=== PATIENT | female | born 1955 | race Caucasian/White ===

== ENCOUNTER → 2016-11-14 | Day surgery (SDC) | payer BC ==
[2016-11-04 11:41] VITALS: Ht 165.1 cm; Wt 65.9 kg
[~2016-11-14] VITALS: Ht 165.1 cm; Wt 65.9 kg
[~2016-11-14] MED LIST: 500ML BSS 0.3ML EPI 1:1000PF IRRIG ONE; ACETAMINOPHEN 325 MG TAB PO PRN; ALEN40TA2 PO; AMVISC PLUS 0.8ML SYRINGE INT OCU ONE; ATROPINE SULFATE 0.1 MG/ML 5ML SYR IV PRN; ATROPINE SULFATE 1% OP SOLN 2 ML BTL ONE; AcetylCHOLine CHL OP SOL 1:100 2 ML BTL ONE; BRIMONIDINE TART 0.2% OP SOLN PER DROP CHARGE ONE; BROM0.07; BSS FLUSH ONE; CETI10TA84 PO; CHOL100010 PO; CLXOPO OP; ENDOCOAT 0.85ML SYRINGE INT OCU ONE; EpHEDrine SULFATE INJ 50 MG/ML AMP IV PRN; EpINEphrine INJ 1MG/ML AMP 1 MG/ML AMP ONE; FENTANYL CITRATE INJ 50 MCG/1 ML 2 ML VIAL ONE; HEALON 10MG/ML 0.85 ML SYR INSTIL ONE; HOME1TAB PO; LACTATED RINGER'S 1000ML 500 ML IV SCH; LIDOCAINE 4% OP SOLN DROP CHARGE ONE; LIDOCAINE 4% OP SOLN DROP CHARGE OPR SCH; LIDOCAINE HCL 1% MPF 2 ML VIAL ONE; MIDAZOLAM HCL 1 MG/ML 2ML VIAL ONE; MONT1TAB3 PO; MOXIFLOXACIN OPH SOLN PER DROP CHARGE ONE; POVIDONE-IODINE OP SOLN 30 ML BTL ONE; PRED1SUS3 OPR; PROPARACAINE 0.5% OP SOLN PER DROP CHARGE OPR SCH; TETRACAINE HCL (OPHTH) 60 DROPS/4 ML BTL OP ONE; TOBRAMYCIN/DEXAMETHASONE OPH OINT PER APPLN CHARGE ONE; VALA500T60 PO
[2016-11-14] MEDS: PHENYLEPHRINE HCL 2.5% OP SOLN PER DROP CHARGE OPR SCH ×2 (08:55→09:02)
[2016-11-14] MEDS: TROPICAMIDE 1% OP SOLN PER DROP CHARGE OPR SCH ×2 (08:57→09:03)
[2016-11-14] MEDS: CYCLOPENTOLATE HCL 1% OP SOLN PER DROP CHARGE OPR SCH ×2 (08:58→09:04)
[2016-11-14] MEDS: KETOROLAC 0.5% OP SOLN PER DROP CHARGE OPR SCH ×2 (08:59→09:10)
[2016-11-14] MEDS: MOXIFLOXACIN OPH SOLN PER DROP CHARGE OPR SCH ×2 (09:00→09:11)
--- NOTE | 2016-11-14 09:30 | History & Physical Bridge - [place] ---
H&P Re-Evaluation Bridge Note: I have examined the patient, reviewed the History & Physical and in the interval since the performance of the History & Physical I have noted the following changes of clinical significance: No changes noted
--- NOTE | 2016-11-14 10:58 | Discharge Instructions-SurgCtr ---
Discharge Instructions Visit Reason for Visit: Right Eye Cataract, Endothelial Corneal Dystrophy Discharge Discharge Diagnosis / Problem: cataract and Fuchs Dystrophy Right Eye Discharge Goals Goal(s): Improve function Activity Recommendations Lifting Limitations: none Anesthesia . Post Anesthesia Instructions: If you have had General Anesthesia or IV Sedation: * Do not drive today. * Resume driving when surgeon permits. * Do not make important decisions or sign legal documents today. * Call surgeon for: 1. Temperature elevations greater than 101 degrees F. 2. Uncontrollable pain. 3. Excessive bleeding. 4. Persistent nausea and vomiting. 5. Medication intolerance (nausea, vomiting or rash). * For nausea and vomiting use only clear liquids such as: tea, soda, bouillon until nausea subsides, then gradually increase diet as tolerated. * If you have any concerns or questions, call your surgeon's office. If physician is unavailable and it is an emergency, call 911 or go to the nearest emergency room. . Instructions / Follow-Up Instructions / Follow-Up ACTIVITY RECOMMENDATIONS: * Bedrest (eyes to the ceiling) MEDICATIONS: Resume previous medications unless instructed otherwise by your surgeon. Eye drops (today and tomorrow): Cipro - one drop in operative eye every 2 hours while awake Prednisolone 1% - one drop in operative eye every 2 hours while awake Prolensa - one drop operative eye 1 times daily SPECIAL CARE INSTRUCTIONS: * If any problems or concerns, please call Dr. Barrientos's office at . * Keep plastic shield taped over eye to sleep at night. * Keep plastic shield taped over eye except to administer eye drops. * Keep plastic shield on until office visit the following day. FOLLOW UP VISIT: Follow-up with Dr. Barrientos in the [place] office as scheduled. If not already scheduled, please call the office at . Diet Recommendations Home Diet: resume previous diet Procedures Procedures Performed: Right Eye Descemet's Stripping Automated Endothelial Keratoplasty; Cataract Extraction With Lens Implant Pending Studies Studies pending at discharge: no Medical Emergencies . Who to Call and When: Medical Emergencies: If at any time you feel your situation is an emergency, please call 911 immediately. . Non-Emergent Contact Non-Emergency issues call your: Product Grader . . "Provider Documentation" section prepared by [place] Barrientos.
--- NOTE | 2016-11-14 10:59 | [facility] Post Operative Brief Note ---
Immediate Operative Summary Operative Date Nov 14, 2016. Pre-Operative Diagnosis Cataract Right Eye, Fuch's Dystrophy Post-Operative Diagnosis Same Procedure(s) Performed Right Eye Descemet's Stripping Automated Endothelial Keratoplasty; Cataract Extraction With Lens Implant Surgeon Dr. Barrientos Stitcher Special Machine Surgeon(s) None Estimated Blood Loss 0 mL Findings cataract and Fuchs Dystrophy right Eye Specimens 1. Corneal Donor Rim - for routine culture, gram stain and aerobic Complication(s) None Disposition Recovery Room / PACU
--- NOTE | 2016-11-14 11:26 | Anesthesia Progress Nt - [facility] ---
Anesthesia Post Op Note Date & Time Nov 14, 2016 at 11:25 Vital Signs Pain Intensity: 0 Vital Signs Past 12 Hours Date Time Temp Pulse Resp B/P Pulse Ox O2 Delivery O2 Flow Rate FiO2 11/14/16 11:04 36.9 69 16 136/72 97 Room Air 11/14/16 08:47 36.9 75 16 143/74 98 Room Air Notes Mental Status: alert / awake / arousable, participated in evaluation Pt Amnestic to Procedure: Yes Nausea / Vomiting: adequately controlled Pain: adequately controlled Airway Patency, RR, SpO2: stable & adequate BP & HR: stable & adequate Hydration State: stable & adequate Anesthetic Complications: no major complications apparent
[2016-11-14 12:04] VITALS: BP 128/73; PULSE 69; O2SAT 95
--- NOTE | 2016-11-14 13:29 | OPERATIVE REPORT ---
DATE OF OPERATION: 11/14/2016 PREOPERATIVE DIAGNOSIS: Cataract and Fuchs dystrophy, right eye. POSTOPERATIVE DIAGNOSIS: Same. PROCEDURE PERFORMED: Phacoemulsification cataract extraction with intraocular lens placement and Descemet stripping automated endothelial keratoplasty, right eye. COMPLICATIONS: None. ESTIMATED BLOOD LOSS: None. ANESTHESIA: Local with sedation. DESCRIPTION OF PROCEDURE: After informed consent was obtained in the holding area, attention was first turned to the donor cornea. It was placed on the trephine endothelial side up and trephinated with an 8.0 mm Kaylene trephine by myself. It was covered in Optisol and then set aside. The patient was then brought back to the operating room where cardiac monitoring leads and oxygen by nasal cannula was administered by anesthesia. Gentle IV sedation was given and the patient's right eye was prepped and draped in usual sterile fashion. A wire lid speculum was placed in the right eye and the operating microscope swung into position. Using 0.12 forceps and Supersharp blade, a paracentesis port was made at the 11 o'clock position of the patient's right eye. 1% nonpreserved lidocaine was injected into the anterior chamber for anesthesia. A 2.2 mm keratome blade was then used to make a shelved clear cornea incision at the 9 o'clock position of the patient's right eye. The anterior chamber was filled with Healon and a curvilinear capsulorrhexis was performed with the cystotome and Utrata forceps. BSS on hydrodissection cannula was then used to hydrodissect the lens nucleus away from the capsular bag. The phacoemulsification handpiece was then used in a stop and chop fashion to remove the lens nucleus. The irrigation and aspiration handpiece was then used to remove the residual cortical material. The eye was then filled with Healon. The main incision enlarged to 4 mm and a Bausch and Lomb MX60 22.5 Diopter intraocular lens was injected into the capsular bag. The previously used trephine was inked and used to fabricio the surface of the cornea for an 8.0 mm diameter. Reverse Sinskey hook was then used to score and strip Descemet membrane from within that area. The Descemet stripper removed the residual membrane from within that area. The stromal associate buyer was then used in the periphery of the stripped area to roughen the stromal bed. The irrigation and aspiration handpiece was then used to remove the viscoelastic material from the eye. The donor cornea was then placed endothelial side up on the EndoSerter and a drop of Healon was placed on it. It was then retracted into the EndoSerter. The EndoSerter was then used to insert the cornea into the anterior chamber through the primary incision. Once this was done, a single 10-0 nylon suture was placed through the main incision and a complete air fill of the eye was achieved and the graft was centered. A complete air fill of the eye was held for 10 minutes, after which time the interface was milked with [employer] LASIK roller. Another 15 minutes then elapsed, after which time a partial air fluid exchange was done, leaving behind a 60% air fill. ReSure sealant was placed over the primary and the paracentesis port. The wire lid speculum was removed from the eye. Vigamox, atropine and TobraDex ointment were placed on the eye and the eye was shielded. The patient tolerated the procedure well and was taken to recovery to lay flat for an hour before being discharged home. I attest to the content of the Intraoperative Record and any orders documented therein. Any exceptions are noted below. FLORIAN
== END | disposition home or self-care (01) ==
LOC: X.SURG 08:27
PROVIDERS: ATTEND Ophthalmology
DX: H18.51 Endothelial corneal dystrophy (principal); H26.9 Unspecified cataract; Z88.4 Allergy status to anesthetic agent

== ENCOUNTER → 2017-02-06 | Day surgery (SDC) | payer BC, OTHER ==
[2017-01-23 07:39] VITALS: Ht 165.1 cm; Wt 65.9 kg
[~2017-02-06] VITALS: Ht 165.1 cm; Wt 65.9 kg
[~2017-02-06] MED LIST changes: +ACETAMINOPHEN 325 MG TAB ONE; -BROM0.07; -CLXOPO OP; -ENDOCOAT 0.85ML SYRINGE INT OCU ONE; -HEALON 10MG/ML 0.85 ML SYR INSTIL ONE; -HOME1TAB PO; +HOME1TAB8 PO; +LIDOCAINE 4% OP SOLN DROP CHARGE OPL SCH; -LIDOCAINE 4% OP SOLN DROP CHARGE OPR SCH; +ONDANSETRON INJ 2 MG/ML 2 ML VIAL IV PRN; +PROPARACAINE 0.5% OP SOLN PER DROP CHARGE OPL SCH; -PROPARACAINE 0.5% OP SOLN PER DROP CHARGE OPR SCH; -TETRACAINE HCL (OPHTH) 60 DROPS/4 ML BTL OP ONE
[2017-02-06] MEDS: PHENYLEPHRINE HCL 2.5% OP SOLN PER DROP CHARGE OPL SCH ×2 (09:18→09:23)
[2017-02-06] MEDS: TROPICAMIDE 1% OP SOLN PER DROP CHARGE OPL SCH ×2 (09:19→09:24)
[2017-02-06] MEDS: CYCLOPENTOLATE HCL 1% OP SOLN PER DROP CHARGE OPL SCH ×2 (09:20→09:25)
[2017-02-06] MEDS: KETOROLAC 0.5% OP SOLN PER DROP CHARGE OPL SCH ×2 (09:21→09:26)
[2017-02-06] MEDS: MOXIFLOXACIN OPH SOLN PER DROP CHARGE OPL SCH ×2 (09:22→09:32)
--- NOTE | 2017-02-06 11:25 | Discharge Instructions-SurgCtr ---
Discharge Instructions Date of Service Feb 06, 2017. Visit Reason for Visit: Left Cataract, Endothelial Corneal Dystrophy Discharge Discharge Diagnosis / Problem: cataract left eye/ fuchs dystrophy left eye Discharge Goals Goal(s): Improve function Activity Recommendations Activity Limitations: per Instructions/Follow-up section Lifting Limitations: no more than 5 pounds Anesthesia . Post Anesthesia Instructions: If you have had General Anesthesia or IV Sedation: * Do not drive today. * Resume driving when surgeon permits. * Do not make important decisions or sign legal documents today. * Call surgeon for: 1. Temperature elevations greater than 101 degrees F. 2. Uncontrollable pain. 3. Excessive bleeding. 4. Persistent nausea and vomiting. 5. Medication intolerance (nausea, vomiting or rash). * For nausea and vomiting use only clear liquids such as: tea, soda, bouillon until nausea subsides, then gradually increase diet as tolerated. * If you have any concerns or questions, call your surgeon's office. If physician is unavailable and it is an emergency, call 911 or go to the nearest emergency room. . Instructions / Follow-Up Instructions / Follow-Up ACTIVITY RECOMMENDATIONS: * Bedrest (eyes to the gonzalo) MEDICATIONS: Resume previous medications unless instructed otherwise by your surgeon. Eye drops (today and tomorrow): Cipro - one drop in operative eye every 2 hours while awake Prednisolone 1% - one drop in operative eye every 2 hours while awake Prolensa - one drop operative eye 1 times daily SPECIAL CARE INSTRUCTIONS: * If any problems or concerns, please call Dr. Barrientos's office at . * Keep plastic shield taped over eye to sleep at night. * Keep plastic shield taped over eye except to administer eye drops. * Keep plastic shield on until office visit the following day. FOLLOW UP VISIT: Follow-up with Dr. Barrientos in the [place] office as scheduled. If not already scheduled, please call the office at . Diet Recommendations Home Diet: resume previous diet Procedures Procedures Performed: Left Descemet's Stripping Automated Endothelial Keratoplasty Of Left Eye And Cataract Extraction with Lens Implant Pending Studies Studies pending at discharge: yes List of pending studies: corneal donor culture Medical Emergencies . Who to Call and When: Medical Emergencies: If at any time you feel your situation is an emergency, please call 911 immediately. . Non-Emergent Contact Non-Emergency issues call your: Glass Mechanic . . "Provider Documentation" section prepared by [place] Barrientos.
--- NOTE | 2017-02-06 11:25 | [facility] Post Operative Brief Note ---
Immediate Operative Summary Operative Date Feb 06, 2017. Pre-Operative Diagnosis Cataract left eye and Fuch's dystrophy left eye Post-Operative Diagnosis same Procedure(s) Performed Left Descemet's Stripping Automated Endothelial Keratoplasty Of Left Eye And Cataract Extraction with Lens Implant Surgeon Dr Barrientos Recovery Manager Surgeon(s) 0 Estimated Blood Loss 0 Findings cataract and fuchs dystrophy left eye Specimens Culture cornea donor rim Complication(s) None Disposition Recovery Room / PACU
[2017-02-06 11:26] VITALS: TEMP 36.8
[2017-02-06 12:46] VITALS: BP 150/87; PULSE 82; O2SAT 97
--- NOTE | 2017-02-06 12:56 | Anesthesia Progress Nt - [facility] ---
Anesthesia Post Op Note Date & Time Feb 06, 2017 at 12:55 Vital Signs Pain Intensity: 4.0 Vital Signs Past 12 Hours Date Time Temp Pulse Resp B/P Pulse Ox O2 Delivery O2 Flow Rate FiO2 02/06/17 12:46 82 20 150/87 97 Room Air 02/06/17 11:26 36.8 76 16 131/87 97 Room Air 02/06/17 09:09 37.0 81 20 144/89 98 Room Air Notes Mental Status: alert / awake / arousable, participated in evaluation Pt Amnestic to Procedure: Yes Nausea / Vomiting: adequately controlled Pain: adequately controlled Airway Patency, RR, SpO2: stable & adequate BP & HR: stable & adequate Hydration State: stable & adequate Anesthetic Complications: no major complications apparent
--- NOTE | 2017-02-06 13:48 | OPERATIVE REPORT ---
DATE OF OPERATION: 02/06/2017 PREOPERATIVE DIAGNOSIS: Cataract and Fuchs' corneal dystrophy, left eye. POSTOPERATIVE DIAGNOSIS: Same. PROCEDURE PERFORMED: Phacoemulsification cataract extraction with intraocular lens placement and Descemet stripping automated endothelial keratoplasty, left eye. SURGEON: Dr. [place] Barrientos. COMPLICATIONS: None. ESTIMATED BLOOD LOSS: None. ANESTHESIA: Local with sedation. After informed consent was obtained in the holding area, attention was first turned to the donor cornea. It was placed endothelial side up on the Kaylene trephine and trephinated with an 8.0 mm blade by myself. It was then covered in Optisol and set aside. The patient was then brought back to the operating room where cardiac monitoring leads and oxygen by nasal cannula was administered by anesthesia. Gentle IV sedation was given, and the patient's left eye was prepped and draped in usual sterile fashion. A wire lid speculum was placed in the left eye and the operating microscope swung into position. Using 0.12 forceps and a supersharp blade, a paracentesis port was made at the 5 o'clock position of patient's left eye. 1% nonpreserved lidocaine was injected into the anterior chamber for anesthesia. A 2.2 mm keratome blade was then used to make a shelved clear cornea incision at the 3 o'clock position of the patient's left eye. The anterior chamber was filled with Healon and a curvilinear capsulorrhexis was performed with the cystotome and capsulorrhexis forceps. BSS on a hydrodissection cannula was then used to hydrodissect the lens nucleus away from the capsular bag. The phacoemulsification handpiece was then used in a stop and chop fashion to remove the lens nucleus. Irrigation aspiration handpiece was then used to remove the residual cortical material from the eye. The eye was then filled with Healon. The main incision enlarged to a total of 4 mm and a Bausch and Lomb MX60 23.0 Diopter intraocular lens was injected into the capsular bag. The donor cornea was then marked using the previously used Kaylene trephine for diameter of 8 mm. Reverse Sinskey hook was then used to score and strip Descemet's membrane from within the marked area. The Descemet stripper removed the stripped membrane from the eye. Stromal cake winder was used in the periphery to roughen the stromal bed. The irrigation-aspiration handpiece was then used to remove the viscoelastic material from the eye. The donor cornea was then placed endothelial side up on an EndoSerter and a drop of Healon was placed on it. It was then retracted into the EndoSerter. The EndoSerter was then used to inject the corneal graft into the anterior chamber of the left eye. It was unfolded underneath BSS and air. A single 10-0 nylon suture was placed through the main incision. The graft was centered and a complete air fill of the eye was held for 15 minutes. During this time the cornea was covered with Healon and after 15 minutes had elapsed, the interface was milked using a [employer] Lasik roller. The eye was then covered with Healon again after atropine drops were then placed on the eye. Another 10 minutes elapsed after which time the Healon was removed from the surface of the eye. A partial air fluid exchange was done leaving behind a 60% air fill. ReSure Sealant was then placed over the paracentesis as well as a primary incision for extra wound integrity. The wire lid speculum was then removed from the eye. Vigamox, brimonidine and TobraDex ointment were placed on the eye and the eye was shielded. The patient tolerated the procedure well and was taken to recovery area in stable condition. I attest to the content of the Intraoperative Record and any orders documented therein. Any exceptions are noted below. MTDD
== END | disposition home or self-care (01) ==
LOC: X.SURG 08:57
PROVIDERS: ATTEND Ophthalmology
DX: H26.9 Unspecified cataract (principal); H18.51 Endothelial corneal dystrophy; J45.909 Unspecified asthma, uncomplicated; Z98.890 Other specified postprocedural states

== ENCOUNTER → 2017-03-22 | Outpatient (CLI) | payer BC ==
[~2017-03-22] MED LIST changes: -500ML BSS 0.3ML EPI 1:1000PF IRRIG ONE; -ACETAMINOPHEN 325 MG TAB ONE; -ACETAMINOPHEN 325 MG TAB PO PRN; -AMVISC PLUS 0.8ML SYRINGE INT OCU ONE; -ATROPINE SULFATE 0.1 MG/ML 5ML SYR IV PRN; -ATROPINE SULFATE 1% OP SOLN 2 ML BTL ONE; -AcetylCHOLine CHL OP SOL 1:100 2 ML BTL ONE; -BRIMONIDINE TART 0.2% OP SOLN PER DROP CHARGE ONE; -BSS FLUSH ONE; -EpHEDrine SULFATE INJ 50 MG/ML AMP IV PRN; -EpINEphrine INJ 1MG/ML AMP 1 MG/ML AMP ONE; -FENTANYL CITRATE INJ 50 MCG/1 ML 2 ML VIAL ONE; -LACTATED RINGER'S 1000ML 500 ML IV SCH; -LIDOCAINE 4% OP SOLN DROP CHARGE ONE; -LIDOCAINE 4% OP SOLN DROP CHARGE OPL SCH; -LIDOCAINE HCL 1% MPF 2 ML VIAL ONE; -MIDAZOLAM HCL 1 MG/ML 2ML VIAL ONE; -MOXIFLOXACIN OPH SOLN PER DROP CHARGE ONE; -ONDANSETRON INJ 2 MG/ML 2 ML VIAL IV PRN; -POVIDONE-IODINE OP SOLN 30 ML BTL ONE; -PROPARACAINE 0.5% OP SOLN PER DROP CHARGE OPL SCH; -TOBRAMYCIN/DEXAMETHASONE OPH OINT PER APPLN CHARGE ONE
--- NOTE | 2017-03-22 14:10 | MAMMOGRAPHY REPORT ---
BILATERAL DIGITAL SCREENING MAMMOGRAM WITH CAD: 03/22/2017 CLINICAL HISTORY: Routine screening. Patient has no complaints. TECHNIQUE: Bilateral CC and MLO views were obtained. Current study was also evaluated with a Comput er Aided Detection (CAD) system. COMPARISON: Comparison is made to exams dated: 03/18/2016 mammogram, 03/17/2015 mammogram, 02/27/2014 m ammogram, 02/20/2013 mammogram, 02/16/2012 mammogram, and 12/14/2010 mammogram - [facility] enter. BREAST COMPOSITION: The tissue of both breasts is heterogeneously dense, which may obscure small ma sses. FINDINGS: There are stable benign-appearing calcifications within the left breast. The parenchymal pattern is unchanged. No developing mass, architectural distortion or cluster of suspicious microcal cifications is seen in either breast. IMPRESSION: ACR BI-RADS CATEGORY 2: BENIGN There is no mammographic evidence of malignancy. A 1 year screening mammogram is recommended. The p atient will receive written notification of the results. Approximately 10% of breast cancers are not detected with mammography. A negative mammographic repor t should not delay biopsy if a clinically suggestive mass is present. Lucina Sanchez M.D. ay/:03/22/2017 09:32:18 Teacher Kindergarten: Ashlie SOLOMON(R)(M), [facility] letter sent: Normal 1/2 BI-RADS Code: ACR BI-RADS Category 2: Benign
== END | disposition home or self-care (01) ==
LOC: C.MAMM 08:18
PROVIDERS: ATTEND Family Medicine
DX: Z12.31 Encounter for screening mammogram for malignant neoplasm of breast (principal)

== ENCOUNTER → 2017-03-23 | Outpatient (CLI) | payer BC | END | disposition home or self-care (01) | LOC: C.FOODA 13:06 | PROVIDERS: ATTEND Family Medicine | DX: Z86.010 Personal history of colon polyps (principal) ==

== ENCOUNTER → 2017-04-14 | Outpatient (CLI) | payer BC ==
--- NOTE | 2017-04-14 08:03 | DIAGNOSTIC IMAGING REPORT ---
Biliary ultrasound CLINICAL HISTORY: B19.20 hepatitis C. COMPARISON STUDY: No previous studies for comparison. FINDINGS: The pancreas appears sonographically normal as visualized. No focal hepatic masses are visualized. The liver is slightly heterogeneous in echotexture. There is no ductal dilatation. The common bile duct measures 4 mm. No gallstones are visualized. There are 2 gallbladder polyps the largest of which measures 5 mm. There is no hydronephrosis. IMPRESSION: 1. Minor heterogeneity in hepatic echotexture. No masses identified 2. No evidence of ductal dilatation. 3. Tiny gallbladder polyps Electronically signed by: Isreal Peralta M.D. 04/14/2017 8:01 AM Dictated Date/Time: 04/14/2017 8:00 AM
== END | disposition home or self-care (01) ==
LOC: C.ULTR 07:06
PROVIDERS: ATTEND Internal Medicine Gastroenterology
DX: B19.20 Unspecified viral hepatitis C without hepatic coma (principal); K82.4 Cholesterolosis of gallbladder

== ENCOUNTER → 2017-12-25 | Outpatient (CLI) | payer OTHER ==
--- NOTE | 2017-12-25 08:13 | DIAGNOSTIC IMAGING REPORT ---
ABDOMEN LIMITED (US) HISTORY: 62 years-old Female FATTY LIVER COMPARISON: Right upper quadrant ultrasound 04/14/2017 TECHNIQUE: Multiple real-time sonographic images of the abdominal right upper quadrant were obtained assessing grayscale appearance and color flow FINDINGS: Imaged pancreas appears unremarkable. No intrahepatic mass lesions. Liver measures up to 13.5 cm in length and demonstrates mildly increased echogenicity with poor through transmission. There are several echogenic dependent and nondependent nonshadowing foci within the gallbladder lumen, largest of which measures up to 5 mm, unchanged from comparison. No shadowing cholelithiasis, gallbladder wall thickening or pericholecystic fluid collections. Common bile duct is normal, 4 mm. Imaged right kidney is unremarkable without hydronephrosis. IMPRESSION: 1. No cholelithiasis or sonographic evidence of acute cholecystitis. 2. Several echogenic dependent and nondependent nonshadowing foci within the gallbladder lumen measuring up to 5 mm, appear unchanged from comparison suggesting gallbladder polyps. 3. Probable fatty infiltration of the liver. The above report was generated using voice recognition software. It may contain grammatical, syntax or spelling errors. Electronically signed by: Suman Allred M.D. 12/25/2017 8:11 AM Dictated Date/Time: 12/25/2017 8:08 AM
== END | disposition home or self-care (01) ==
LOC: C.ULTR 07:41
PROVIDERS: ATTEND Internal Medicine Gastroenterology
DX: K76.0 Fatty (change of) liver, not elsewhere classified (principal)